=== PATIENT | male | born 1995 | race Caucasian/White ===

== ENCOUNTER 2023-10-27 10:10 | Day surgery (SDC) | payer OTHER ==
[2023-10-20 09:43] VITALS: BMI 28.2
[2023-10-27 11:31] VITALS: RESP 16; TEMP 97.5
[2023-10-27 11:54] VITALS: BP 112/70; PULSE 78
== END 2023-10-27 12:01 | disposition home or self-care (01) ==
LOC: FASU-ENDO 10:10
PROVIDERS: ATTEND Internal Medicine Gastroenterology
PROC: 0DB68ZX Excision of Stomach, Via Natural or Artificial Opening Endoscopic, Diagnostic (ICD-10-PCS; 2023-10-27)
PROC: 0DB48ZX Excision of Esophagogastric Junction, Via Natural or Artificial Opening Endoscopic, Diagnostic (ICD-10-PCS; 2023-10-27)
PROC: 0DB98ZX Excision of Duodenum, Via Natural or Artificial Opening Endoscopic, Diagnostic (ICD-10-PCS; principal; 2023-10-27 11:10)
DX: K31.89 Other diseases of stomach and duodenum (principal); K20.90 Esophagitis, unspecified without bleeding
CPT/HCPCS: 88305-TC; 88342-TC